=== PATIENT | male | born 1960 | race African-American/Black ===

== ENCOUNTER 2016-10-20 12:21 | Emergency (ER) | payer MEDICARE ==
[2016-10-20 13:29] LABS: BASOPHIL 0.6 % (0-2); EOSINOPHIL 4.9 % (0-5); HCT 31.8 % (42.0-52.0); HGB 9.6 g/dl (13.2-18.0); LYMPHOCYTE 17.8 % (15-48); MCH 26.7 pg (25.0-31.0); MCHC 30.2 g/dL (32.0-36.0); MCV 88.3 fL (78.0-100.0); MONOCYTE 7.7 % (0-12); PLT 509 K/uL (150-400); RDW 13.4 % (11.5-14.0); WBC 13.1 K/uL (4.0-10.5)
[2016-10-20 13:36] LABS: INR 1.04 (0.9-1.2); PROTHROMBIN TIME 13.2 SECONDS (11.7-14.0); PTT 33.7 SECONDS (23.2-31.4)
[2016-10-20 13:44] LABS: ALBUMIN 3.7 g/dL (3.5-5.0); BILIRUBIN - TOTAL 0.2 mg/dL (0.1-1.0); GLOBULIN (CALCULATION) 3.9 g/dL (2.2-4.2); POTASSIUM 4.8 mmol/L (3.5-5.1); TOTAL PROTEIN 7.6 g/dL (6.4-8.3)
[2016-10-20 13:46] LABS: LACTIC ACID 0.8 mmol/L (0.5-2.2)
== END 2016-10-20 18:40 | disposition other institution (70) ==
LOC: FER 12:21
PROVIDERS: Emergency Medicine
DX: R07.89 Other chest pain (principal); R79.89 Other specified abnormal findings of blood chemistry; I12.0 Hypertensive chronic kidney disease with stage 5 chronic kidney disease or end stage renal disease; E11.22 Type 2 diabetes mellitus with diabetic chronic kidney disease; N18.6 End stage renal disease; Z79.2 Long term (current) use of antibiotics; Z79.899 Other long term (current) drug therapy
CPT/HCPCS: 36415; 71010; 80053; 83605; 84484; 85025; 85610; 85730; 86403; 87040; 87070; 87077; 87186; 87205; 93005